=== PATIENT | female | born 1950 | race Caucasian/White ===

== ENCOUNTER 2022-08-24 22:43 | Observation (INO) | payer MEDICARE ==
[~2022-08-24] VITALS: Ht 162.6 cm; Wt 69.4 kg
[2022-08-24] MEDS ORDERED: FAMOTIDINE 20 MG/2 ML VIAL IV ONE (23:00)
[2022-08-24] MEDS ORDERED: ASPIRIN 81 MG CHEW TAB PO ONE (23:00)
[2022-08-24] MEDS ORDERED: NITROGLYCERIN 2% OINT 1 GM PKT ONE (23:13)
[2022-08-24] MEDS ORDERED: NITROGLYCERIN 2% OINT 1 GM PKT TOP ONE (23:15)
[2022-08-24] MEDS ORDERED: ACETAMINOPHEN 325 MG TAB PO ONE (23:15)
[2022-08-25] VITALS (7 sets, daily range): BP systolic 120–139; BP diastolic 67–86; PULSE 70–82; RESP 16–18; TEMP 97–98.8; O2SAT 97–99
[2022-08-25] MEDS ORDERED: ENOXAPARIN SOD INJ 60 MG/0.6 ML SYR SC STA (00:10)
[2022-08-25] MEDS: METOPROLOL TARTRATE 25 MG TAB PO SCH ×2 (00:15→13:45)
[2022-08-25] MEDS ORDERED: ZOLPIDEM TARTRATE 5 MG TAB PO PRN (00:15)
[2022-08-25] MEDS ORDERED: ENALAPRILAT IV INJ 1.25 MG/ML VIAL IV PRN (00:15)
[2022-08-25] MEDS ORDERED: ACETAMINOPHEN 325 MG TAB PO PRN ×2 (00:15→08:00)
[2022-08-25] MEDS: FAMOTIDINE 20 MG TAB PO SCH ×2 (00:15→13:44)
[2022-08-25] MEDS ORDERED: DIPHENHYDRAMINE HCL INJ 50 MG/ML VIAL IV PRN (00:15)
[2022-08-25] MEDS ORDERED: CLONIDINE HCL 0.1 MG TAB PO PRN (00:15)
[2022-08-25] MEDS ORDERED: MELATONIN3 MG PO (01:46)
[2022-08-25] MEDS ORDERED: BENAZEPRIL HCL10 MG PO ×2 (01:46→07:15)
[2022-08-25] MEDS ORDERED: LIPITOR20 MG PO (01:46)
[2022-08-25] MEDS ORDERED: ZOLOFT50 MG (01:46)
[2022-08-25] MEDS: NITROGLYCERIN 2% OINT 1 GM PKT TOP SCH ×2 (06:07→13:44)
[2022-08-25 07:15] LABS: ANION GAP 11.9 mmol/L (8-16); CALCIUM 8.8 mg/dL (8.4-10.2); CREATINE KINASE 87 IU/L (29-168); CREATININE, SERUM 0.7 mg/dL (0.57-1.11); POTASSIUM 4.9 mmol/L (3.5-5.1)
[2022-08-25] MEDS ORDERED: AMLODIPINE BESYL5 MG PO (07:15)
[2022-08-25 07:56] LABS: BASOPHILS # (AUTO) 0.1 (0.0-0.1); BASOPHILS % 1.1 % (0.0-1.0); EOSINOPHILS # (AUTO) 0.1 (0.0-0.4); EOSINOPHILS % 2.2 % (0.0-6.0); HEMATOCRIT 38.6 % (34.2-44.1); HEMOGLOBIN 12.5 g/dL (12.0-16.0); LYMPHOCYTES # (AUTO) 0.8 (1.0-3.2); LYMPHOCYTES % 15.5 % (18.0-39.1); MEAN CORPUSCULAR HEMOGLOBIN 29.6 pg (28-32); MEAN CORPUSCULAR HGB CONC 32.4 g/dL (31-35); MEAN CORPUSCULAR VOLUME 91.5 fL (81-99); MONOCYTES # (AUTO) 0.6 (0.2-0.8); MONOCYTES % 10.3 % (4.4-11.3); NEUTROPHILS # (AUTO) 3.8 (2.1-6.9); NEUTROPHILS % 70.5 % (38.7-80.0); PLATELET COUNT 206 x10e3/uL (140-360); RED BLOOD COUNT 4.22 x10e6/uL (3.6-5.1); RED CELL DISTRIBUTION WIDTH 13.1 % (11.7-14.4)
[2022-08-25 08:24] LABS: ALBUMIN 3.2 g/dL (3.5-5.0); BILIRUBIN,DIRECT 0.1 mg/dL (0.0-0.5); CHOL/HDL RATIO 3.7 (3.0-3.6)
[2022-08-25] MEDS ORDERED: DOCUSATE SODIUM 100 MG CAP PO SCH (09:00)
[2022-08-25] MEDS ORDERED: ASPIRIN 325 MG TAB EC PO SCH (09:00)
[2022-08-25] MEDS ORDERED: SENNOSIDES 8.6 MG TAB PO SCH (09:00)
[2022-08-25] MEDS ORDERED: AMLODIPINE BESYLATE 5 MG TAB PO SCH (09:00)
[2022-08-25] MEDS ORDERED: ASPIRIN 81 MG CHEW TAB PO SCH (09:00)
[2022-08-25] MEDS ORDERED: BENAZEPRIL HCL 10 MG TAB PO SCH ×2 (09:00→21:00)
[2022-08-25] MEDS ORDERED: SERTRALINE HCL 50 MG TAB PO SCH (09:00)
[2022-08-25 14:28] LABS: CREATINE KINASE 184 IU/L (29-168)
[2022-08-25] MEDS ORDERED: TOPROL XL25 MG PO (16:22)
[2022-08-25] MEDS ORDERED: ELIQUIS5 MG PO (16:22)
[2022-08-25] MEDS ORDERED: ASPIRIN CHEW81 MG PO (16:22)
[2022-08-25] MEDS ORDERED: APIXABAN 5 MG TABLET PO SCH (17:00)
[2022-08-25] MEDS ORDERED: ATORVASTATIN 20 MG TAB PO SCH (21:00)
[2022-08-25] MEDS ORDERED: MELATONIN 5 MG TABLET PO PRN (21:00)
[2022-08-26] MEDS ORDERED: METOPROLOL SUCCINATE 25 MG TAB XL PO SCH (09:00)
== END 2022-08-25 18:41 | disposition home or self-care (01) ==
LOC: FSED 22:50 → ERHOLD 08-25 00:09 → MED/SURG 08-25 01:21
PROVIDERS: ADMIT Internal Medicine; ATTEND Internal Medicine
DX: R07.2 Precordial pain (principal); I16.0 Hypertensive urgency; E78.5 Hyperlipidemia, unspecified; F32.A Depression, unspecified; I48.0 Paroxysmal atrial fibrillation; E87.5 Hyperkalemia; Z20.822 Contact with and (suspected) exposure to COVID-19; Z79.02 Long term (current) use of antithrombotics/antiplatelets; Z79.82 Long term (current) use of aspirin; Z79.899 Other long term (current) drug therapy
CPT/HCPCS: 36415; 71045; 80048; 80061; 80076; 82550; 82553; 83036; 83735; 84443; 84484; 85025; 93005; 93306; 99284; G0378; J1650; U0002